=== PATIENT | male | born 1940 | race Hispanic/Latino ===

== ENCOUNTER 2018-12-07 08:34 | Day surgery (SDC) | payer MEDICARE ==
[~2018-12-07] VITALS: Ht 165.1 cm; Wt 73.9 kg
[2018-12-07] VITALS (7 sets, daily range): BP systolic 94–134; BP diastolic 60–64
[~2018-12-07 08:34] MED LIST: ASPI-555 PO; CHOL50004 PO; FENO134C PO; GLIM2TAB3 PO; LEVO75TA10 PO; LISI-613 PO; METF-446 PO; MULT1CAP32 PO; OMEG100014 PO; PREG75 PO; SIMV20TA6 PO; SODIUM CHLORIDE 0.9% 1000ML 1,000 ML IV ONE
[2018-12-07] MEDS ORDERED: PROPOFOL 10 MG/ML 20ML VIAL IV ONE (09:51)
[2018-12-07] MEDS ORDERED: LIDOCAINE HCL-MPF 2% 5ML VIAL ONE (09:52)
== END 2018-12-07 10:25 | disposition home or self-care (01) ==
LOC: DAH 08:34 → ENDO 08:34
PROVIDERS: ATTEND Internal Medicine
DX: K29.50 Unspecified chronic gastritis without bleeding (principal); K22.8 Other specified diseases of esophagus; K31.89 Other diseases of stomach and duodenum; E78.5 Hyperlipidemia, unspecified; E11.9 Type 2 diabetes mellitus without complications; I10 Essential (primary) hypertension; E03.9 Hypothyroidism, unspecified; E55.9 Vitamin D deficiency, unspecified; Z68.31 Body mass index [BMI] 31.0-31.9, adult; Z79.899 Other long term (current) drug therapy; Z98.49 Cataract extraction status, unspecified eye
CPT/HCPCS: 43239; 82948 ×2; 88305; 88342; 93005; A4606; J2704; J3490; J7030

== ENCOUNTER 2023-12-04 18:35 | Emergency (ER) | payer MEDICARE ==
[~2023-12-04] VITALS: Ht 165.1 cm; Wt 72.6 kg
[~2023-12-04 18:35] MED LIST changes: -ASPI-555 PO; +ASPI-556 PO; -FENO134C PO; +FENO134C21 PO; -GLIM2TAB3 PO; +GLIM2TAB30 PO; -LISI-613 PO; +LISI20TA24 PO; +SIMV-43 PO; -SIMV20TA6 PO; -SODIUM CHLORIDE 0.9% 1000ML 1,000 ML IV ONE
[2023-12-04 21:48] VITALS: BP 119/84; PULSE 91; RESP 18; O2SAT 97
[2023-12-04] MEDS: ACETAMINOPHEN 500 MG TABLET PO ONE (21:54)
== END 2023-12-04 21:58 | disposition home or self-care (01) ==
LOC: EDH 18:35
DX: S30.0XXA Contusion of lower back and pelvis, initial encounter (principal); I10 Essential (primary) hypertension; E03.9 Hypothyroidism, unspecified; E78.00 Pure hypercholesterolemia, unspecified; Z79.84 Long term (current) use of oral hypoglycemic drugs; Z79.82 Long term (current) use of aspirin; Z79.899 Other long term (current) drug therapy; Z90.89 Acquired absence of other organs; Z98.890 Other specified postprocedural states; X58.XXXA Exposure to other specified factors, initial encounter; Y93.89 Activity, other specified; Y92.89 Other specified places as the place of occurrence of the external cause; Y99.8 Other external cause status
CPT/HCPCS: 72170